=== PATIENT | male | born 1980 | race Caucasian/White ===

== ENCOUNTER → 2020-10-07 | Outpatient (CLI) | payer OTHER ==
--- NOTE | 2020-10-07 09:12 | MR ---
EXAMINATION TYPE: MR knee RT wo con DATE OF EXAM: 10/07/2020 COMPARISON: No prior studies. HISTORY: Pain in right lateral knee x 3 weeks, RA, no known injury TECHNIQUE: Multiplanar, multisequence imaging of the right knee is performed without IV contrast. FINDINGS: MEDIAL MENISCUS: Anterior and posterior horns are intact without tear. LATERAL MENISCUS: There is irregularity of the anterior horn of the lateral meniscus which does not m eet MRI criteria for tear but if there is clinical concern, arthrogram could be obtained. CRUCIATE LIGAMENTS: The anterior and posterior cruciate ligaments are intact and unremarkable. COLLATERAL LIGAMENTS: The medial collateral ligament and lateral collateral ligament complex are inta ct and unremarkable. EXTENSOR MECHANISM: Visualized quadriceps and patellar tendons are intact. EFFUSION: There is a knee joint effusion. POPLITEAL CYST: No popliteal/so cyst. TRICOMPARTMENT SPACES: Joint spaces are preserved. CARTILAGE: No definite articular cartilage defects are seen. BONE MARROW SIGNAL: No focal abnormal marrow signal is appreciated. OTHER: No additional significant abnormality is appreciated. IMPRESSION: 1. Irregularity of the anterior horn of the lateral meniscus does not meet MRI criteria for tear. If there is clinical concern, arthrogram could be obtained. 2. Knee joint effusion.
== END | disposition home or self-care (01) ==
LOC: RADMRIMAIN 07:21
PROVIDERS: ATTEND Internal Medicine Rheumatology
DX: M25.461 Effusion, right knee (principal)